=== PATIENT | male | born 1985 | race Two or more races ===

== ENCOUNTER 2025-05-08 08:50 | Emergency (ER) | payer OTHER ==
[~2025-05-08] VITALS: Ht 185.4 cm; Wt 99.8 kg
[2025-05-08] MEDS ORDERED: Ketorolac Tromethamine 30mg Vial IM ONE (10:55)
[2025-05-08] MEDS ORDERED: CEPH500 PO ×2 (11:28→11:30)
== END 2025-05-08 11:35 | disposition home or self-care (01) ==
LOC: ER 08:50
DX: T80.29XA Infection following other infusion, transfusion and therapeutic injection, initial encounter (principal); L03.317 Cellulitis of buttock; M54.31 Sciatica, right side
CPT/HCPCS: A9270; J1885